=== PATIENT | female | born 1995 | race Hispanic/Latino ===

== ENCOUNTER 2017-04-13 22:13 | Emergency (ER) | payer SELFPAY | END 2017-04-13 23:26 | disposition left against medical advice (07) | LOC: EDH 22:13 ==

== ENCOUNTER 2017-04-17 14:00 | Emergency (ER) | payer SELFPAY ==
[2017-04-17 15:56] LABS: RAPID GROUP A STREP NEGATIVE (NEGATIVE)
== END 2017-04-17 16:02 | disposition home or self-care (01) ==
LOC: EDH 14:00
DX: J00 Acute nasopharyngitis [common cold] (principal); G43.909 Migraine, unspecified, not intractable, without status migrainosus; Z88.8 Allergy status to other drugs, medicaments and biological substances
CPT/HCPCS: 87804; 87880

== ENCOUNTER 2018-12-31 20:33 | Emergency (ER) | payer OTHER | END 2018-12-31 22:02 | disposition home or self-care (01) | LOC: EDH 20:33 | DX: L02.31 Cutaneous abscess of buttock (principal); L02.215 Cutaneous abscess of perineum; G43.909 Migraine, unspecified, not intractable, without status migrainosus; Z88.6 Allergy status to analgesic agent; Z88.8 Allergy status to other drugs, medicaments and biological substances | CPT/HCPCS: 81025 ==

== ENCOUNTER 2020-08-29 20:24 | Emergency (ER) | payer OTHER ==
[~2020-08-29] VITALS: Ht 157.5 cm; Wt 87.1 kg
[2020-08-29 21:09] VITALS: BP 121/71
[2020-08-29] MEDS ORDERED: MORPHINE 5 MG/ML VIAL (5MG OR GREATER DOSE) IM SCH (22:00)
[2020-08-29] MEDS ORDERED: LIDOCAINE HCL 1% 20 ML VIAL INJ SCH (22:15)
[2020-08-29 22:40] VITALS: BP 112/68
[2020-08-29] MEDS ORDERED: CEFTRIAXONE SODIUM 500 MG (DOSE 250-750MG) VIAL IM SCH (23:00)
[2020-08-29] MEDS ORDERED: SULF1TAB42 PO (23:32)
[2020-08-29] MEDS ORDERED: CEPH500B PO (23:32)
[2020-08-29] MEDS ORDERED: MUPI22O TP (23:34)
[2020-08-30 00:05] VITALS: BP 109/61
== END 2020-08-30 00:13 | disposition home or self-care (01) ==
LOC: EDH 20:24
DX: L02.416 Cutaneous abscess of left lower limb (principal); E66.9 Obesity, unspecified; Z88.6 Allergy status to analgesic agent; Z79.899 Other long term (current) drug therapy
CPT/HCPCS: 10061; 87070; 87076; 87077; 87186; 96372 ×2; 99284; J0696; J2270